=== PATIENT | male | born 1975 | race Two or more races ===

== ENCOUNTER 2017-05-13 13:26 | Emergency (ER) | payer SELFPAY ==
[2017-05-13 14:27] LABS: ADD MAN DIFF? NO; AGAP ISTAT 17 mmol/L (6-14); BUN ISTAT 13 mg/dL (8-26); CHLORIDE ISTAT 98 mmol/L (98-110); CREATININE ISTAT 1.2 mg/dL (0.5-1.4); GLUCOSE ISTAT 104 mg/dL (70-99); HEMATOCRIT ISTAT 47 % (37-52); SODIUM ISTAT 138 mmol/L (135-145); TOT CO2 ISTAT 28 mmol/L (23-32)
[2017-05-13] MEDS ORDERED: IOHEXOL 300 MG/ML 100ML VIAL. IV (14:30)
[2017-05-13] MEDS: MECLIZINE HCL 12.5 MG TABLET. PO (14:32)
[2017-05-13] MEDS: ASPIRIN CHEWABLE 81 MG TABLET. PO (14:32)
[2017-05-13 14:33] LABS: BASO % 1 % (0-3); EOS # 0.1 x10^3/uL (0.0-0.7); EOS % 2 % (0-3); HEMATOCRIT 46.8 % (39.0-53.0); LYMPH # 1.3 x10^3/uL (1.0-4.8); LYMPH % 20 % (24-48); MEAN CORPUSCULAR HEMOGLOBIN 29 pg (25-35); MEAN CORPUSCULAR HGB CONC 34 g/dL (31-37); MEAN CORPUSCULAR VOLUME 86 fL (79-100); MONO # 0.4 x10^3/uL (0.0-1.1); MONO % 7 % (0-9); NEUT # 4.5 x10^3uL (1.8-7.7); NEUT % 71 % (31-73); PLATELET COUNT 201 x10^3/uL (140-400); RED BLOOD COUNT 5.47 x10^6/uL (4.30-5.70); RED CELL DISTRIBUTION WIDTH 12.7 % (11.5-14.5); WHITE BLOOD COUNT 6.3 x10^3/uL (4.0-11.0)
[2017-05-13] MEDS: ONDANSETRON PF 4 MG/2 ML VIAL. IV (14:33)
[2017-05-13 14:37] LABS: ANION GAP 6 (6-14); BLOOD UREA NITROGEN 13 mg/dL (8-26); BUN/CREATININE RATIO 10 (6-20); CALCIUM 9.1 mg/dL (8.5-10.1); CARBON DIOXIDE 31 mmol/L (21-32); CHLORIDE 100 mmol/L (98-107); CREATININE 1.3 mg/dL (0.7-1.3); GFR 60.8; GLUCOSE 105 mg/dL (70-99); POTASSIUM 4.1 mmol/L (3.5-5.1); SODIUM 137 mmol/L (136-145)
[2017-05-13 14:42] LABS: ALBUMIN 3.9 g/dL (3.4-5.0); ALBUMIN/GLOBULIN RATIO 1.1 (1.0-1.7); ALK PHOS 100 U/L (46-116); ALT (SGPT) 110 U/L (16-63); AST (SGOT) 62 U/L (15-37); TOTAL BILIRUBIN 0.9 mg/dL (0.2-1.0); TOTAL PROTEIN 7.5 g/dL (6.4-8.2)
[2017-05-13] MEDS ORDERED: CONTRAST GIVEN MC (14:45)
[2017-05-13 14:50] LABS: TROPONINI < 0.017 ng/mL (0.000-0.055)
== END 2017-05-13 15:43 | disposition home or self-care (01) ==
LOC: ER 13:26
DX: R42 Dizziness and giddiness (principal); K76.0 Fatty (change of) liver, not elsewhere classified; H93.11 Tinnitus, right ear; F41.9 Anxiety disorder, unspecified; F10.20 Alcohol dependence, uncomplicated
CPT/HCPCS: 36415; 70450; 71275; 80047; 80053; 84484; 85025; 93005; 96374; 99285-25; J2405; J8597